=== PATIENT | male | born 1980 ===

== ENCOUNTER 2018-09-09 09:33 | Emergency (ER) | payer OTHER ==
[2018-09-09 09:42] VITALS: RESP 18
--- NOTE | 2018-09-09 09:49 | C.PDOC ---
History Of Present Illness 38 y/o male, w/no significant PMhx, presents to the ER complaining of left wrist pain s/p fall 2 weeks ago. Patient states that he fell forwards onto his outstretched hands. Denies head strike. Patient reports that he was not evaluated after the fall. He notes that the pain is persistent and worse with movement. He notes that he has not taken any medications. Denies having any weakness, numbness, and parasthesias. Chief Complaint (Nursing): Upper Extremity Problem/Injury History Per: Patient History/Exam Limitations: no limitations Onset/Duration Of Symptoms: Days Current Symptoms Are (Timing): Still Present Severity: Moderate Past Medical History Reviewed: Historical Data, Nursing Documentation, Vital Signs - Medical History PMH: No Chronic Diseases Surgical History: No Surg Hx Family History: States: No Known Family Hx Review Of Systems Except As Marked, All Systems Reviewed And Found Negative. Constitutional: Negative for: Fever, Chills Cardiovascular: Negative for: Chest Pain, Palpitations Respiratory: Negative for: Cough, Shortness of Breath Gastrointestinal: Negative for: Nausea, Vomiting, Abdominal Pain Musculoskeletal: Positive for: Hand Pain (left), Other (left wrist pain) Skin: Negative for: Rash, Bruising Neurological: Negative for: Weakness, Numbness, Dizziness Physical Exam - Physical Exam Appears: Well, Non-toxic, No Acute Distress Skin: Normal Color, Warm, Dry Head: Atraumatic, Normacephalic Eye(s): bilateral: Normal Inspection, PERRL, EOMI Nose: Normal Oral Mucosa: Moist Neck: Normal, Normal ROM, No Paracervical Tenderness, Supple Chest: Symmetrical Cardiovascular: Rhythm Regular Respiratory: Normal Breath Sounds, No Rales, No Rhonchi, No Wheezing Extremity: Normal ROM, Tenderness (tenderness over the 1st and 2nd metacarpals of left hand, tenderness over left ventral wrist), Capillary Refill (< 2 seconds), No Deformity, No Swelling Extremity: Bilateral: Atraumatic, No Pedal Edema, Normal Color And Temperature, Normal ROM Pulses: Left Radial: Normal, Right Radial: Normal Neurological/Psych: Oriented x3, Normal Speech, Normal Cognition, Normal Cranial Nerves, Normal Motor, Normal Sensation Gait: Steady Medical Decision Making Medical Decision Making: Initial Plan: --Tylenol PO --X-Ray-Left Wrist --X-Ray-Left Hand X-Ray-Left Wrist FINDINGS: BONES: Normal. No fracture. JOINTS: Normal. No dislocation. SOFT TISSUES: Normal. OTHER FINDINGS: None. IMPRESSION: Normal left wrist radiographs. X-Ray-Left Hand FINDINGS: BONES: Normal. No fracture. JOINTS: Normal. No osteoarthritic changes. SOFT TISSUES: Lateral soft tissue swelling borders 5th meta carpal. OTHER FINDINGS: None. IMPRESSION: No fracture or dislocation is suggested. Mild soft tissue swelling in the area of interest is noted. Pt reports decreased pain after medication. Plan of care discussed with patient, and strict instructions given regarding prescriptions given, importance of follow up, and signs to return to Emergency Department, to include numbness, weakness, paresthesias, worsening pain, or any other new/worsening symptoms. Patient verbalizes understanding of discussion. Patient A&Ox3, ambulating with steady gait, stable for discharge home. Impression: Wrist Sprain Plan: * RICE * Hao bandage * Ortho followup for persistent pain * Followup with primary doctor/clinic within 2 days * Return to ER for new/worsening symptoms Disposition - Disposition Referrals: Ignacio Marc III, MD [Staff Provider] - Disposition: HOME/ ROUTINE Disposition Time: 10:36 Condition: IMPROVED Additional Instructions: Ibuprofen/Tylenol for pain Rest injured extremity, keep compressed Followup with orthopedics within 2 days Return to ER for new/worsening symptoms Instructions: Wrist Sprain (DC) Forms: [facility] ([employer]), Work Excuse - Clinical Impression Clinical Impression: Wrist sprain - 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 - Scribe Statement The provider has reviewed the documentation as recorded by the Jean Paul Salazar Provider Attestation All medical record entries made by the Jean Paul were at my direction and personally dictated by me. I have reviewed the chart and agree that the record accurately reflects my personal performance of the history, physical exam, medical decision making, and the department course for this patient. I have also personally directed, reviewed, and agree with the discharge instructions and disposition.
--- NOTE | 2018-09-09 11:30 | RAD ---
Date of service: 09/09/2018 PROCEDURE: Left Wrist Radiographs. HISTORY: trauma r/o fracture COMPARISON: None. FINDINGS: BONES: Normal. No fracture. JOINTS: Normal. No dislocation. SOFT TISSUES: Normal. OTHER FINDINGS: None. IMPRESSION: Normal left wrist radiographs.
--- NOTE | 2018-09-09 11:31 | RAD ---
PROCEDURE: Left Hand Radiographs. HISTORY: trauma r/o fracture COMPARISON: None. FINDINGS: BONES: Normal. No fracture. JOINTS: Normal. No osteoarthritic changes. SOFT TISSUES: Lateral soft tissue swelling borders 5th meta carpal. OTHER FINDINGS: None. IMPRESSION: No fracture or dislocation is suggested. Mild soft tissue swelling in the area of interest is noted.
[2018-09-09 11:37] VITALS: BP 130/89; PULSE 64; TEMP 98; O2SAT 99
== END 2018-09-09 11:37 | disposition home or self-care (01) ==
LOC: C.ER 09:33
DX: S63.502A Unspecified sprain of left wrist, initial encounter (principal); W19.XXXA Unspecified fall, initial encounter